=== PATIENT | female | born 1985 | race Caucasian/White ===

== ENCOUNTER 2017-06-29 11:55 | Emergency (ER) | payer MEDICAID, OTHER ==
[~2017-06-29] VITALS: Ht 165.1 cm; Wt 63.5 kg
[2017-06-29 12:03] VITALS: BP 161/85
== END 2017-06-29 14:53 | disposition left against medical advice (07) ==
LOC: ER 11:55
DX: R10.9 Unspecified abdominal pain (principal); N93.9 Abnormal uterine and vaginal bleeding, unspecified; Z53.21 Procedure and treatment not carried out due to patient leaving prior to being seen by health care provider

== ENCOUNTER 2017-07-05 15:51 | Emergency (ER) | payer MEDICAID ==
[~2017-07-05] VITALS: Ht 165.1 cm; Wt 70.0 kg
[2017-07-05 15:54] VITALS: BP 145/95
[2017-07-05 16:26] LABS: Urine RBC None Seen /hpf (0 - 4)
[2017-07-05 16:46] LABS: Basophils # (auto) 0 uL; Basophils % (auto) 0.3 % (0.0-2.0); CONDITION Y; Eosinophils # (auto) 0 uL; Eosinophils % (auto) 0.3 % (0.0-7.0); Hematocrit 33.7 % (36.0-46.0); Hemoglobin 11.7 g/dL (12.2-16.2); Lymphocytes # (auto) 1.2 uL; Lymphocytes % (auto) 12.3 % (10.0-50.0); Mean Corpuscular Hemoglobin 32.7 pg (28.0-32.0); Mean Corpuscular Hgb Conc. 34.8 g/dL (32.0-36.0); Mean Corpuscular Volume 93.9 fL (80.0-100.0); Monocytes # (auto) 0.5 uL; Monocytes % (auto) 5.3 % (0.0-12.0); Neutrophils # (auto) 8.1 uL; Neutrophils % (auto) 81.8 % (37.0-80.0); Platelet Count (auto) 206 10^3/uL (140-450); White Blood Cell 9.9 10^3/uL (4.4-10.8)
[2017-07-05 16:50] LABS: Albumin 2.7 g/dL (3.4-5.0); Potassium 3.4 mmol/L (3.5-5.1)
[2017-07-05 16:52] LABS: BUN/Creatinine Ratio 10.7
[2017-07-05 16:55] LABS: Urine Bilirubin Negative (Negative); Urine Blood Negative /uL (Negative); Urine Color Yellow (Yellow); Urine Glucose Normal (Normal); Urine Ketone Negative (Negative); Urine Mucus FEW (None Seen); Urine Nitrite POSITIVE (Negative); Urine Squamous Epithelial Cell FEW /hpf (<5); Urine Urobilinogen Normal (Negative); Urine pH 6.5 (5.0-8.0)
[2017-07-05 16:55] LABS: Bilirubin, Total 0.2 mg/dL (0.2-1.0); Total Protein 7.2 g/dL (6.4-8.2)
== END 2017-07-05 17:50 | disposition home or self-care (01) ==
LOC: ER 15:54
DX: O20.0 Threatened abortion (principal); Z3A.18 18 weeks gestation of pregnancy; Z88.0 Allergy status to penicillin; Z88.5 Allergy status to narcotic agent; Z88.6 Allergy status to analgesic agent
CPT/HCPCS: 36415; 76805; 80053; 81001; 84702; 85025

== ENCOUNTER 2017-12-12 05:54 | Inpatient (IN) | payer MEDICAID ==
[~2017-12-12] VITALS: Ht 165.1 cm; Wt 79.4 kg
[2017-12-12] MEDS ORDERED: LACT. RINGERS/OXYTOCIN 20UNITS 1,000 ML IV SCH (06:39)
[2017-12-12] MEDS ORDERED: CARBOPROST TROMETHAMINE 250 MCG/1ML VIAL IM PRN (06:45)
[2017-12-12] MEDS ORDERED: LIDOCAINE 2%HCL (LOCAL ANESTH.) INJ 20ML MDV IJ ONE (06:45)
[2017-12-12] MEDS ORDERED: DERMOPLAST 60ML BOTTLE TOP PRN (06:45)
[2017-12-12] MEDS ORDERED: METHYLERGONOVINE MALEATE 0.2 MG/ML AMP IM PRN (06:45)
[2017-12-12] MEDS ORDERED: PHISODERM TOP SOLN 240ML BTL TOP PRN (06:45)
[2017-12-12] MEDS ORDERED: WITCH HAZEL-GLYCERIN PAD TOP PRN (06:45)
[2017-12-12] MEDS ORDERED: CLINDAMYCIN 900MG IV 50 ML IV ONE (06:56)
[2017-12-12] MEDS ORDERED: LIDOCAINE 2%HCL (LOCAL ANESTH.) INJ 20ML MDV ONE (06:57)
[2017-12-12] MEDS ORDERED: WITCH HAZEL-GLYCERIN PAD TOP ONE (06:58)
[2017-12-12] MEDS ORDERED: PHISODERM TOP SOLN 240ML BTL TOP ONE (06:58)
[2017-12-12] MEDS ORDERED: DERMOPLAST 60ML BOTTLE TOP ONE (06:58)
[2017-12-12] MEDS ORDERED: LACT. RINGERS/OXYTOCIN 20UNITS 1,000 ML IV ONE (06:58)
[2017-12-12] MEDS: LACTATED RINGER'S 1,000 ML IV SCH ×3 (07:09→22:39)
[2017-12-12 07:44] LABS: Basophils # (auto) 0 uL; Basophils % (auto) 0.3 % (0.0-2.0); Eosinophils # (auto) 0.1 uL; Eosinophils % (auto) 0.6 % (0.0-7.0); Hematocrit 33.5 % (36.0-46.0); Hemoglobin 10.9 g/dL (12.2-16.2); Lymphocytes # (auto) 1.4 uL; Lymphocytes % (auto) 12.8 % (10.0-50.0); Mean Corpuscular Hgb Conc. 32.5 g/dL (32.0-36.0); Mean Corpuscular Volume 86.3 fL (80.0-100.0); Monocytes # (auto) 0.7 uL; Monocytes % (auto) 6.1 % (0.0-12.0); Neutrophils # (auto) 8.8 uL; Neutrophils % (auto) 80.2 % (37.0-80.0); Nucleated Red Blood Cells % 0.1 %; Platelet Count (auto) 144 10^3/uL (140-450); Red Blood Cells 3.88 10^6/uL (4.0-5.20); Red Cell Distribution Width 15.8 % (11.8-14.3)
[2017-12-12 07:51] LABS: INR 0.92 (0.9-1.15); Partial Thromboplastin Time 27.2 sec (22.64-33.71)
[2017-12-12 07:54] LABS: Albumin 2.2 g/dL (3.4-5.0); BUN/Creatinine Ratio 6.7; Calcium 8.9 mg/dL (8.5-10.1); Potassium 3.8 mmol/L (3.5-5.1)
[2017-12-12 07:57] LABS: Bilirubin, Total 0.3 mg/dL (0.2-1.0); Total Protein 6.5 g/dL (6.4-8.2)
[2017-12-12 09:13] LABS: Alcohol, Urine < 3.0 mg/dL (0-5); Amphetamine Screen, Urine POSITIVE (NEGATIVE); Barbiturate Scree,Urine NEGATIVE (NEGATIVE); Benzodiazephine Screen, Urine NEGATIVE (NEGATIVE); Cannabinoid Screen, Urine NEGATIVE (NEGATIVE); Cocaine Screen, Urine NEGATIVE (NEGATIVE); Opiate Scree,Urine NEGATIVE (NEGATIVE); Phencyclidine Screen, Urine NEGATIVE (NEGATIVE)
[2017-12-12 09:49] LABS: Urine Bacteria FEW /hpf (None Seen); Urine Blood 1+ /uL (Negative); Urine Mucus FEW (None Seen); Urine Specific Gravity 1.019 (1.001-1.035); Urine WBC 3 /hpf (0 - 5)
[2017-12-12 11:30] VITALS: BP 152/86
[2017-12-12] MEDS: IBUPROFEN 600 MG TAB PO PRN ×3 (11:37→20:04)
[2017-12-12] MEDS ORDERED: CLINDAMYCIN 900MG IV 50 ML IV SCH (14:00)
[2017-12-12 15:46] VITALS: BP 133/77
[2017-12-12 19:38] VITALS: BP 135/71
[2017-12-12 23:31] VITALS: BP 143/67
[2017-12-13 03:06] LABS: RPR Non Reactive (Non Reactive)
[2017-12-13] MEDS: IBUPROFEN 600 MG TAB PO PRN ×2 (03:17→12:52)
[2017-12-13 03:37] VITALS: BP 153/80
[2017-12-13] MEDS ORDERED: TETANUS-DIPTH-ACEL PERTUSSIS 0.5ML SYRG IM ONE (04:00)
[2017-12-13 07:05] VITALS: BP 151/80
[2017-12-13 10:10] LABS: Rubella Antibodies, IgG 1.76 index (Immune >0.99)
[2017-12-13 12:30] VITALS: BP 137/77
[2017-12-13 16:10] VITALS: BP 149/86
== END 2017-12-13 17:00 | disposition home or self-care (01) | DRG 560 ==
LOC: OBSVTOIN 05:54 → LDRP 05:54
PROVIDERS: ADMIT Obstetrics & Gynecology; ATTEND Obstetrics & Gynecology
PROC: 10907ZC Drainage of Amniotic Fluid, Therapeutic from Products of Conception, Via Natural or Artificial Opening (ICD-10-PCS; principal; 2017-12-12)
PROC: 10E0XZZ Delivery of Products of Conception, External Approach (ICD-10-PCS; 2017-12-12)
DX: O69.81X0 Labor and delivery complicated by cord around neck, without compression, not applicable or unspecified (principal); O45.93 Premature separation of placenta, unspecified, third trimester; O48.0 Post-term pregnancy; Z37.0 Single live birth; O77.0 Labor and delivery complicated by meconium in amniotic fluid; Z3A.41 41 weeks gestation of pregnancy; Z88.6 Allergy status to analgesic agent; Z88.0 Allergy status to penicillin; Z23 Encounter for immunization; O62.3 Precipitate labor
CPT/HCPCS: 36415; 59409; 76805; 80053; 80307; 81001; 85025; 85610; 85730; 86592; 86703; 86762; 86850; 86900; 86901; 87340; 90472; 90715; J2590; J3490